=== PATIENT | male | born 1990 | race Caucasian/White ===

== ENCOUNTER 2019-08-05 01:06 | Emergency (ER) | payer BC ==
[2019-08-05] MEDS ORDERED: CLINDAMYCIN 150 MG CAP PO ONE (01:07)
--- NOTE | 2019-08-05 01:11 | Emergency Department Record ---
History of Present Illness - General Stated complaint: DENTAL PAIN Time Seen by Provider: 08/05/19 01:07 Source: Patient Mode of Arrival: Ambulatory Limitations: No limitations - History of Present Illness Initial comments: 29 yo male presents to ED for evaluation of left sided dental pain that has been present for 2 days, denies any trauma or injury. Patient reports taking Tylenol for his pain symptoms with little relief. Patient reports pain extending to the left lower mandible, denies health problems at his baseline. MD complaint: Tooth pain Onset/Timin -: Days(s) Severity: Severe Quality: Aching Consistency: Constant Improves with: None Worsens with: None Context- Dental: History of dental caries - Related Data Previous Rx's Medication Instructions Recorded Clindamycin HCl 300 mg PO QID #27 capsule 08/05/19 Allergies Allergy/AdvReac Type Severity Reaction Status Date / Time No Known Drug Allergies Allergy Verified 08/05/19 01:13 Review of Systems Constitutional: Denies: Chills, Fever, Malaise, Night sweats Eyes: Denies: Eye discharge, Eye pain ENT: Reports: Dental pain. Denies: Congestion, Ear pain Respiratory: Denies: Cough, Dyspnea Cardiovascular: Denies: Chest pain, Dyspnea on exertion Endocrine: Denies: Fatigue, Heat or cold intolerance Gastrointestinal: Denies: Abdominal pain, Nausea, Vomiting Genitourinary: Denies: Incontinence, Retention Musculoskeletal: Denies: Arthralgia, Back pain Skin: Denies: Bruising, Change in color Neurological: Denies: Abnormal gait, Confusion, Headache, Seizure Psychiatric: Denies: Anxiety Hematological/Lymphatic: Denies: Anemia, Blood Clots Physical Exam - General General Appearance: Alert, Oriented x3, Cooperative, Mild distress Limitations: No limitations - Head Head exam: Atraumatic, Normocephalic, Normal inspection Head exam detail: negative: Abrasion, Contusion, Stevenson's sign, General tender ness, Hematoma, Laceration - Eye Eye exam: Normal appearance. negative: Conjunctival injection, Periorbital swelling, Periorbital tenderness, Scleral icterus - ENT Ear exam: negative: Auricular hematoma, Auricular trauma Nasal Exam: negative: Active bleeding, Discharge, Dried blood, Foreign body Mouth exam: negative: Drooling, Laceration, Muffled voice, Tongue elevation Teeth exam: Dental tenderness # Image of Mouth/Teeth: 1 - TTP, no gingival abscess is present on examination - Neck Neck exam: Normal inspection. negative: Meningismus, Tenderness - Respiratory Respiratory exam: Normal lung sounds bilaterally. negative: Rales, Respiratory distress, Rhonchi, Stridor - Cardiovascular Cardiovascular Exam: Regular rate, Normal rhythm, Normal heart sounds - GI/Abdominal GI/Abdominal exam: Soft. negative: Rebound, Rigid, Tenderness - Rectal Rectal exam: Deferred - exam: Deferred - Extremities Extremities exam: Normal inspection. negative: Pedal edema, Tenderness - Back Back exam: Denies: CVA tenderness (R), CVA tenderness (L) - Neurological Neurological exam: Alert, Normal gait, Oriented X3 - Psychiatric Psychiatric exam: Normal affect, Normal mood - Skin Skin exam: Normal color. negative: Abrasion Type of lesion: negative: abrasion Course - Reevaluation(s) Reevaluation #1: 08/05/19 01:29 Patient was reassessed, reports mild improvement following dental block. Will order Toradol IM, clindamycin ordered to initiate treatment for probable dental caries. Patient appears stable for discharge with dental follow-up in 3-5 days as directed. Procedures - Nerve Block Consent Obtained: Verbal consent Time Out Performed: Yes Local Anesthetic Used: Marcaine 0.25% Amount of anesthesia used: 1.0 Side: Left Intraoral Nerve Block: Inferior alveolar Procedure Successful: Yes Complications: None Patient Tolerated Procedure: Good Disposition Disposition: Discharge Clinical Impression: Dental caries Disposition: Home, Self-Care Condition: (2) Stable Instructions: Dental Abscess (ED) Additional Instructions: Return to ED if your symptoms worsen or if you have any concerns. Clindamycin as directed. Follow-up with your Dentist in 3-5 days as directed. Prescriptions: Clindamycin HCl 300 mg PO QID #27 capsule Time of Disposition: 01:15 Quality - Quality Measures Quality Measures: N/A - Blood Pressure Screening Does Patient Have Any of the Following: No Blood Pressure Classification: Hypertensive Reading Systolic Measurement: 142 Diastolic Measurement: 92 Screening for High Blood Pressure: < First Hypertensive BP, F/U Documented > [[id number]] First Hypertensive Follow-up Interventions: Referral to alternative/primary care provider.
[2019-08-05] MEDS ORDERED: FENTANYL PF 100MCG/2ML VIAL IVP ONE (01:16)
[2019-08-05] MEDS ORDERED: KETOROLAC 30 MG/ML VIAL IM ONE (01:29)
== END 2019-08-05 01:48 | disposition home or self-care (01) ==
LOC: ER 01:06
DX: K02.9 Dental caries, unspecified (principal)
CPT/HCPCS: 64400; 96372; 99284; J1885